=== PATIENT | male | born 1980 ===

== ENCOUNTER 2017-06-10 11:56 | Day surgery (SDC) | payer BC ==
[2017-06-07 15:12] VITALS: BMI 27.8
--- NOTE | 2017-06-10 00:41 | P.GSHP ---
History of Present Illness H&P Date: 06/10/17 CHIEF COMPLAINT: Ventral hernia. HISTORY OF PRESENT ILLNESS: The patient is a 37-year-old male who presents with a history of swelling along the abdomen and inguinal area. Now he presents for further evaluation and management. PAST MEDICAL HISTORY: Please see list. PAST SURGICAL HISTORY: Please see list. MEDICATIONS: Please see list. ALLERGIES: Please see list. SOCIAL HISTORY: No illicit drug use FAMILY HISTORY: No reports of Crohn disease or ulcerative colitis. REVIEW OF ORGAN SYSTEMS: CONSTITUTIONAL: No reports of fevers or chills. GI: Denies any blood in stools or constipation. PHYSICAL EXAM: VITAL SIGNS: Stable GENERAL: Well-developed pleasant male in no acute distress. HEENT: No scleral icterus. Extraocular movements grossly intact. Moist buccal mucosa. NECK: Supple without lymphadenopathy. CHEST: Unlabored respirations. Equal bilateral excursions. CARDIOVASCULAR: Regular rate and rhythm. Distal 2+ pulses. ABDOMEN: Soft, nondistended. Palpable defect of the epigastrium and groin. MUSCULOSKELETAL: No clubbing, cyanosis, or edema. ASSESSMENT: 1. Ventral hernia. 2. Inguinal hernia. PLAN: 1. Recommend proceeding with robotic ventral hernia repair and inguinal hernia with mesh. 2. Benefits and risks of surgical intervention was discussed including possibility of open technique. 3. DVT prophylaxis. 4. Antibiotic prophylaxis. Past Medical History Past Medical History: No Reported History History of Any Multi-Drug Resistant Organisms: None Reported Past Surgical History: Orthopedic Surgery Additional Past Surgical History / Comment(s): ORIF left tib/fib, vasectomy Past Anesthesia/Blood Transfusion Reactions: No Reported Reaction Smoking Status: Never smoker - Past Family History Mother Family Medical History: No Reported History Medications and Allergies Home Medications Medication Instructions Recorded Confirmed Type Acetaminophen Tab [Tylenol Tab] 650 mg PO Q6H PRN 06/07/17 06/07/17 History Ibuprofen [Motrin Ib] 200 - 400 mg PO Q6H PRN 06/07/17 06/07/17 History Allergies Allergy/AdvReac Type Severity Reaction Status Date / Time No Known Allergies Allergy Verified 06/07/17 14:57
[~2017-06-10 11:56] MED LIST: ACETAMINOPHEN IV (For NPO) 1,000 MG in EMPTY BAG 1 BAG IVPB ONE; DEXAMETHASONE SOD PHOSPHATE 10 MG/ML 1 ML VIAL IV ONE; HEPARIN SODIUM,PORCINE 5,000 UNIT/ML 1 ML VIAL SQ ONE; ONDANSETRON 4 MG/2 ML VIAL IVP ONE; SCOPOLAMINE 1.5MG/72HR PATCH TRANSDERM ONE; ceFAZolin IN SWFI 2 GM/20 ML SYRINGE IVP ONE; fentaNYL (PF) 50 MCG/ML 2 ML AMP IV PRN
[2017-06-10] MEDS: LACTATED RINGERS 1,000 ML IV SCH ×2 (13:30→13:31)
[2017-06-10] MEDS: LIDOCAINE 1% 20 ML VIAL (10MG/ML) FOR IV START INTRADERMA PRN ×2 (13:30→13:43)
[2017-06-10 13:55] LABS: HCT 45.1 % (39.0-53.0); HGB 15.4 gm/dL (13.0-17.5); MCH 30.8 pg (25.0-35.0); MCHC 34.2 g/dL (31.0-37.0); MCV 90.2 fL (80.0-100.0); Mean Platelet Volume 7.4; Platelet Count 247 k/uL (150-450); RDW 12.1 % (11.5-15.5); WBC 5.5 k/uL (3.8-10.6)
[2017-06-10] MEDS ORDERED: SUCCINYLCHOLINE CHLORIDE 100 MG/5 ML SYR IV ONE (15:36)
[2017-06-10] MEDS ORDERED: NEOSTIGMINE 1 MG/ML 10 ML VIAL ONE (15:36)
[2017-06-10] MEDS ORDERED: MIDAZOLAM 2 MG/2 ML VIAL ONE (15:36)
[2017-06-10] MEDS ORDERED: fentaNYL (PF) 50 MCG/ML 2 ML AMP ONE (15:36)
[2017-06-10] MEDS ORDERED: GLYCOPYRROLATE 0.2 MG/ML 2 ML VIAL ONE (15:36)
[2017-06-10] MEDS ORDERED: PROPOFOL 10 MG/ML 20 ML VIAL IV ONE (15:36)
[2017-06-10] MEDS ORDERED: ROCURONIUM BROMIDE 10 MG/ML 10 ML VIAL IV ONE (15:36)
[2017-06-10] MEDS ORDERED: KETOROLAC 30 MG/ML 1 ML VIAL ONE (15:36)
[2017-06-10] MEDS ORDERED: BUPIVACAINE (PF) 0.25% 30 ML VIAL SQ ONE ×2 (15:36)
[2017-06-10] MEDS ORDERED: LIDOCAINE 1% INJ 10MG/ML (20 ML MDV) ONE (15:36)
[2017-06-10] MEDS ORDERED: LACTATED RINGERS 1,000 ML IV ONE (17:21)
[2017-06-10] MEDS ORDERED: TAMSULOSIN 0.4 MG CAP.ER.24H PO STA (18:39)
[2017-06-10 18:46] VITALS: RESP 16; TEMP 97.8
--- NOTE | 2017-06-10 18:53 | P.OP ---
Date of Procedure: 06/10/17 Description of Procedure: SURGEON: SHABANA IRIZARRY MD CP BLEACHER OPERATOR: Ankita Vasquez PREOPERATIVE DIAGNOSES: 1. Umbilical ventral hernia with incarceration, initial 2. Left inguinal hernia, initial. 3. Left groin pain. 4. Umbilical pain and swelling POSTOPERATIVE DIAGNOSES: 1. Umbilical ventral hernia with incarceration, initial, 2 cm 2. Left direct inguinal hernia, initial, 3 cm 3. Left inguinal lipoma, 5 cm 4. Left groin pain. 5. Umbilical pain and swelling OPERATION: 1. Robotic-assisted da Howie Xi laparoscopic repair of umbilical ventral hernia [address] with [address] mesh 11.4 cm. 2. Robotic-assisted da Howie Xi laparoscopic repair of incarcerated left inguinal initial direct hernia with Bard Ventralight ST 10 x 15 cm mesh 3. Excision of left inguinal lipoma, 5-cm ANESTHESIA: General with local anesthetic ESTIMATED BLOOD LOSS: 5 mL. SPECIMENS: None. COMPLICATIONS: None. INDICATIONS: The patient is a 37-year-old male who presents with umbilical hernia. Surgical intervention with laparoscopic versus robotic and open techniques were reviewed. Placement of mesh was also reviewed. Benefits and risks were thoroughly described. Informed consent was obtained. DESCRIPTION OF PROCEDURE: The patient was brought into the operating room and laid in supine position. After general induction, the abdomen had been prepped and draped in standard sterile fashion. Ioban draping was also placed. Prior to incision, a timeout protocol was confirmed with surgical team regarding the patient's name including procedures to be performed. The robot was primed prior to the procedure. A field block using local anesthetis was placed along hernia site including the proposed port sites. Initial incision was made with an #11 blade along the left upper quadrant. A 0 degree 5 mm laparoscopic trocar entry was performed. Diagnostic laparoscopy demonstrated incarcerated omentum along the umbilicus. A 8 mm trocar was placed below the xiphoid. Another 8-mm port was placed along the right upper abdomen. The 5-mm port was exchanged for an 8 mm robotic port of the left upper abdomen. Placements of the ports were 15 to 20 cm from the target anatomy and approximately 10 cm apart. Next, a 11.[address] mesh was entered into abdominal cavity with the rough side of the mesh marked. The da Howie XI robot was previously primed, prepped and draped then docked along the left side of the patient. I then sat at the robot Da Howie Xi console where working arms of the robot including Bovie cautery connected to robotic scissors and graspers placed by the treasury assistant. The hernia bordering fascia was cleaned of peritoneal fat to allow for 3 to 5 cm margin of the mesh. The incarcerated omentum was reduced into abdominal cavity using direct pressure over the umbilicus. Fluid and edematous tissue was reduced into the abdomen consistent with chronically incarcerated hernia. Next, hemostasis was checked with cautery. The hernia defect of 2-cm was oversewn using 0-V LOC with imbrication 2. Ventralight ST 11.4 cm mesh was placed with the rough side of the mesh toward the anterior abdominal wall. The smooth side was placed towards the bowel. The mesh was oversewn using 2-0 V LOC 9-inch x 2 from peritoneum to fascia to the mesh approach. A final endoscopic imaging was obtained. Attention was brought to the bilateral groins. At the right groin, a 1 cm direct inguinal hernia was identified medial to the epigastric vessels without incarceration. Along the left groin, a 3 cm direct inguinal hernia was also identified. As he is symptomatic along the left groin, a left inguinal hernia repair was approached. The hernia sac was evaginated whereby the peritoneum was scored using Endo scissors with cautery. Vessel sealer was used to manage the large lipoma of the groin. Once completely reduced into the abdominal cavity, the peritoneal sac of the hernia was stripped and a large lipoma of the left groin was reduced. Care was taken to avoid any injury to the bladder. The left inguinal lipoma was resected and then passed off for further pathological analysis. The size of the hernia defect was 3 cm with intraoperative films obtained. Using a 0-VLOC, the peritoneal defect of the left inguinal hernia site was closed in a pursestring. The defect was found to be completely closed with complete reduction of the left inguinal hernia was confirmed. As an onlay, a 10 x [address] mesh by Povio was initially cut in half and entered into the abdominal cavity. The mesh was sutured to the peritoneum in a running stitch using 2-0 VLOC 9-inch length sutures. The robot was undocked from the patient. I re-scrubbed into the case for closure of incisions. The specimen was removed from the abdominal cavity using the Endo Catch bag after widening the incision of the left upper quadrant. The fascia of was probed and less than 8 mm in size. Incisions were cleansed using saline and hydrogen peroxide solution. The incisions were closed using 4- 0 Monocryl in an interrupted subcuticular fashion. Dermabond was applied to the skin. All instruments and pneumoperitoneum were evacuated from the abdominal cavity. Along the umbilicus, 4 x 4 was folded and used as umbilical dressing with Tegaderm. At the end of the procedure, needle, sponge, and instrument count had been verified correct by registered nurse surgical services. The patient was taken to the postanesthesia care unit in stable condition with abdominal binder. FINDINGS: 1. Initial incarcerated umbilical ventral hernia 2 cm. 2. Left direct initial inguinal hernia, 3 cm with incarcerated left inguinal lipoma over 5 cm 3. Left inguinal lipoma reduced and resected as specimen 4. Small right direct inguinal hernia, 1 cm undisturbed. Plan - Discharge Summary Discharge Rx Participant: Yes New Discharge Prescriptions: New HYDROcodone/APAP 5-325MG [[place] 5-325] 1 tab PO Q6HR PRN #20 tab PRN Reason: Pain Ibuprofen [Motrin] 600 mg PO Q8HR PRN #30 tab PRN Reason: Pain Continue Acetaminophen Tab [Tylenol] 650 mg PO Q6H PRN PRN Reason: Pain Discontinued Ibuprofen [Motrin Ib] 200 - 400 mg PO Q6H PRN PRN Reason: Pain Discharge Medication List Acetaminophen Tab [Tylenol] 650 mg PO Q6H PRN 06/07/17 [History] HYDROcodone/APAP 5-325MG [[place] 5-325] 1 tab PO Q6HR PRN #20 tab 06/10/17 [Rx] Ibuprofen [Motrin] 600 mg PO Q8HR PRN #30 tab 06/10/17 [Rx] Follow up Appointment(s)/Referral(s): Shabana Irizarry MD [STAFF PHYSICIAN] - 06/28/17 Patient Instructions/Handouts: *Surgery [facility] - (Anesthesia) Discharge Instructions Outpatient Surgery, Laparoscopic Herniorrhaphy (DC), Abdominal Binder (DC), Ventral Hernia Repair (GEN), Inguinal Hernia Repair (GEN) Activity/Diet/Wound Care/Special Instructions: No lifting over 4 pounds in 4 weeks. May shower. No bath tub soaks. Wear abdominal binder at all times. May remove dressing along belly button June 14. Apply pressure dressing over belly button for comfort. Discharge Disposition: HOME SELF-CARE
[2017-06-10] MEDS ORDERED: HYDROcodone/APAP 5-325MG 1 EACH TAB PO ONE (19:15)
[2017-06-10 20:12] VITALS: BP 124/61; PULSE 72
== END 2017-06-10 20:22 | disposition home or self-care (01) ==
LOC: OR 11:56
PROVIDERS: ATTEND Surgery Plastic and Reconstructive Surgery
DX: K42.0 Umbilical hernia with obstruction, without gangrene (principal); K40.30 Unilateral inguinal hernia, with obstruction, without gangrene, not specified as recurrent; D17.6 Benign lipomatous neoplasm of spermatic cord
CPT/HCPCS: 86900; 86901; 85027; 86850; 49653; 49650; C1781 ×2; J2250; J1644; J1100; J2710; J2405; J2001; J3010; J1885; J0131; J0330; J2704; J0690; 88302